=== PATIENT | female | born 1985 | race Two or more races ===

== ENCOUNTER 2022-08-11 09:41 | Emergency (ER) | payer MEDICAID ==
[~2022-08-11] VITALS: Ht 162.6 cm; Wt 90.9 kg
[2022-08-11 10:15] VITALS: BP 96/60
[2022-08-11] MEDS ORDERED: AMOX-117 PO (11:50)
[2022-08-11] MEDS ORDERED: HYDR-3965 PO (11:50)
[2022-08-11] MEDS ORDERED: HYDROcodone/acetaminophen 5mg/325mg tablet PO ONE (12:25)
[2022-08-11] MEDS ORDERED: amox tr/potassium clavulanate 875/125mg TAB PO ONE (12:25)
== END 2022-08-11 12:32 | disposition home or self-care (01) ==
LOC: ER 09:42
DX: H66.91 Otitis media, unspecified, right ear (principal); K04.7 Periapical abscess without sinus
CPT/HCPCS: 99283